=== PATIENT | female | born 1950 | race Caucasian/White ===

== ENCOUNTER 2016-06-11 10:06 | Day surgery (SDC) | payer BC ==
[~2016-06-11] VITALS: Ht 167.6 cm; Wt 74.4 kg
[2016-06-11 10:51] VITALS: Ht 167.6 cm; Wt 74.4 kg
[2016-06-11] MEDS ORDERED: CALCIUM (10:58)
[2016-06-11] MEDS ORDERED: VITAMIN D (10:58)
[2016-06-11] MEDS ORDERED: IBUPROFEN (10:58)
[2016-06-11] MEDS ORDERED: BONIVA (10:58)
[2016-06-11 11:28] VITALS: BP 171/88; PULSE 58; RESP 18
[2016-06-11] MEDS ORDERED: MIDAZOLAM 1 MG/ML 2 ML INJ ONE ×2 (12:38)
[2016-06-11] MEDS ORDERED: FENTAnyl 50 MCG/ML VIAL ONE (12:39)
[2016-06-11 12:51] VITALS: BP 149/82; RESP 20
--- NOTE | 2016-06-12 02:46 | GILP ---
DATE OF PROCEDURE: 06/11/2016 NAME OF PROCEDURE: Colonoscopy and biopsy. SURGEON: Kate Michel MD PREOPERATIVE DIAGNOSIS: Screening colonoscopy. POSTOPERATIVE DIAGNOSES 1. Colonoscopy all the way to the cecum. 2. Two small polyps; one in the cecum and another one in the sigmoid, were removed using the biopsy forceps. 3. Internal hemorrhoids. 4. Diverticulosis of the colon. INDICATION FOR THE PROCEDURE: Ms. Delfino Jonas is a 65-year-old female patient, who was scheduled for screening colonoscopy. The procedure and possible complications are well explained to the patient, she understood and conse nted to the procedure. DESCRIPTION OF PROCEDURE: Under the influence of fentanyl and Versed, the colonoscope was carefully introduced in the rectum, and under direct vision, it was advanced all the way to the cecum. FINDINGS: The patient had 2 small polyps, 1 in the sigmoid colon, another 1 in the cecum, and they were removed using the biopsy forceps. The patient was noted to have diverticulosis of the colon an d internal hemorrhoids. She tolerated the procedure very well, and there were no complication from the procedure. At the end of the procedure, she was awake with stable vital signs, and she was disc harged home to the care of her family. IMPRESSION: Please see postoperative diagnosis. PLAN: 1. Await histopathology report. 2. Next screening colonoscopy in 5 years. Dictated By: KATE CORREIA/NEELIMA Conf#: [id number] DID#: [id number] CC: KATE MICHEL MD;*EndCC*
== END 2016-06-11 15:11 | disposition home or self-care (01) ==
LOC: GIL 10:06
PROVIDERS: ATTEND Internal Medicine Gastroenterology
DX: Z12.11 Encounter for screening for malignant neoplasm of colon (principal); D12.0 Benign neoplasm of cecum; D12.5 Benign neoplasm of sigmoid colon; K57.90 Diverticulosis of intestine, part unspecified, without perforation or abscess without bleeding
CPT/HCPCS: 45380; 88305; J2250; J3010